=== PATIENT | male | born 2000 | race Caucasian/White ===

== ENCOUNTER 2023-08-12 11:35 | Emergency (ER) | payer BC ==
[2023-08-12 11:49] VITALS: RESP 18
[2023-08-12] MEDS ORDERED: DIPH,PERTUS(ACELL)TETVAC-LF 0.5 ML VIAL IM ONE (12:18)
[2023-08-12] MEDS ORDERED: cefTRIAXone 1,000 MG VIAL (IM USE) IM STA (12:35)
[2023-08-12] MEDS ORDERED: metroNIDAZOLE 500 MG TAB PO STA (12:40)
--- NOTE | 2023-08-12 12:42 | ED ---
General Adult HPI - General Chief complaint: Skin/Abscess/Foreign Body Stated complaint: right elbow cat bit, swollen painful Time Seen by Provider: 08/12/23 11:46 Source: patient, family, RN notes reviewed Mode of arrival: ambulatory Limitations: no limitations - History of Present Illness Initial comments: 23-year-old male presents emergency department for chief complaint of right arm cat bite. He states that this happened around 7 PM yesterday. He notes that there is redness and swelling and localized region to his right dorsal forearm. Patient states that the cat is up-to-date on its rabies vaccination. The patient's last tetanus vaccination was in 2014. This will be updated today. He has no known medical problems and no known ALLERGIES. - Related Data Previous Rx's Medication Instructions Recorded Amoxic-Pot Clav 875-125Mg 1 tab PO Q12HR #20 tab 08/12/23 [Augmentin 875-125] Allergies Allergy/AdvReac Type Severity Reaction Status Date / Time No Known Allergies Allergy Verified 08/12/23 11:45 Review of Systems ROS Statement: Those systems with pertinent positive or pertinent negative responses have been documented in the HPI. ROS Other: All systems not noted in ROS Statement are negative. Past Medical History Past Medical History: No Reported History Past Surgical History: Tonsillectomy Past Psychological History: No Psychological Hx Reported Smoking Status: Never smoker Past Alcohol Use History: Occasional Past Drug Use History: Marijuana General Exam Limitations: no limitations General appearance: alert, in no apparent distress Head exam: Present: atraumatic, normocephalic, normal inspection Eye exam: Present: normal appearance, PERRL, EOMI. Absent: scleral icterus, conjunctival injection, periorbital swelling Respiratory exam: Present: normal lung sounds bilaterally. Absent: respiratory distress, wheezes, rales, rhonchi, stridor Cardiovascular Exam: Present: regular rate, normal rhythm, normal heart sounds. Absent: systolic murmur, diastolic murmur, rubs, gallop, clicks Extremities exam: Present: full ROM, tenderness (lateral proximal forearm over bite location), normal capillary refill, other (radial pulses 2+ ) Neurological exam: Present: alert, oriented X3 Psychiatric exam: Present: normal affect, normal mood Skin exam: Present: warm, dry, erythema, other (2 puncture wounds to lateral proximal forearm, erythema and swelling with no fluctuance, no streaking or lymphadenopathy). Absent: intact, normal color Course Vital Signs 08/12/23 08/12/23 11:40 13:16 Temperature 98 F 97.4 F L Pulse Rate 98 96 Respiratory 18 18 Rate Blood Pressure 122/81 126/78 O2 Sat by Pulse 98 99 Oximetry Medical Decision Making - Medical Decision Making Was pt. sent in by a medical professional or institution (, PA, TOWER SUPERVISOR, urgent care, hospital, or correction...) When possible be specific @ -No Did you speak to anyone other than the patient for history (EMS, parent, family, police, friend...)? What history was obtained from this source @ -No Did you review nursing and triage notes (agree or disagree)? Why? @ -I reviewed and agree with nursing and triage notes Were old charts reviewed (outside hosp., previous admission, EMS record, old EKG, old radiological studies, urgent care reports/EKG's, correction records)? Report findings @ -No old charts were reviewed Differential Diagnosis (chest pain, altered mental status, abdominal pain women, abdominal pain men, vaginal bleeding, weakness, fever, dyspnea, syncope, head ache, dizziness, GI bleed, back pain, seizure, CVA, palpatations, mental health, musculoskeletal)? @ -Differential Musculoskeletal Muscular strain, contusion, ligament sprain, fracture, arthritis, septic arthritis, bursitis, cellulitis, muscle spasm, nerve compression, DVT, arterial occlusion, herpes zoster, electrolyte abnormality, tumor.... This is not meant to be in all inclusive list EKG interpreted by me (3pts min.). @ -none X-rays interpreted by me (1pt min.). @ -None done CT interpreted by me (1pt min.). @ -None done U/S interpreted by me (1pt. min.). @ -None done What testing was considered but not performed or refused? (CT, X-rays, U/S, labs)? Why? @ -None What meds were considered but not given or refused? Why? @ -None Did you discuss the management of the patient with other professionals (professionals i.e. , PA, TOWER SUPERVISOR, lab, RT, psych nurse, social service technician, hog cutter, teacher, chief financial officer, high risk case manager)? Give summary @ -No Was smoking cessation discussed for >3mins.? @ -No Was critical care preformed (if so, how long)? @ -No Were there social determinants of health that impacted care today? How? (Homelessness, low income, unemployed, alcoholism, drug addiction, transportation, low edu. Level, literacy, decrease access to med. care, alf, rehab)? @ -No Was there de-escalation of care discussed even if they declined (Discuss DNR or withdrawal of care, Hospice)? DNR status @ -No What co-morbidities impacted this encounter? (DM, HTN, Smoking, COPD, CAD, Cancer, CVA, ARF, Chemo, Hep., AIDS, mental health diagnosis, sleep apnea, morbid obesity)? @ -None Was patient admitted / discharged? Hospital course, mention meds given and route, prescriptions, significant lab abnormalities, going to OR and other pertinent info. @ -Discharged. Patient presented to the emergency department for evaluation of cat bite to his right arm that occurred at 7 PM yesterday. Patient has an area on his right lateral forearm of erythema and swelling without fluctuance, no streaking, no lymphadenopathy. Case was discussed with pharmacist who recommended dose of IM Rocephin and Flagyl and outpatient treatment with Augmentin. Patient updated on his tetanus vaccination. Patient advised to have wound checked again in 24-48 hours to ensure it is improving. Patient advised to keep it clean and dry. Patient understands agreeable with plan. Patient stable at time of discharge. Case discussed with Dr. Tyler. Undiagnosed new problem with uncertain prognosis? @ -No Drug Therapy requiring intensive monitoring for toxicity (Heparin, Nitro, Insulin, Cardizem)? @ -No Were any procedures done? @ -No Diagnosis/symptom? @ -cat bite Acute, or Chronic, or Acute on Chronic? @ -acute Uncomplicated (without systemic symptoms) or Complicated (systemic symptoms)? @ -uncomplicated Side effects of treatment? @ -No Exacerbation, Progression, or Severe Exacerbation? @ -No Poses a threat to life or bodily function? How? (Chest pain, [place], [place], pneumonia, PE, COPD, DKA, ARF, appy, cholecystitis, CVA, Diverticulitis, Homicidal, Suicidal, threat to staff... and all critical care pts) @ -No Disposition Clinical Impression: Cat bite Disposition: HOME SELF-CARE Condition: Stable Instructions (If sedation given, give patient instructions): Animal Bite (ED) Additional Instructions: Please tow picker antibiotics and take to completion. Please have wound checked in 24-48 hours to ensure improvement. This can be preformed by your PCP or return to the emergency department. Keep wound clean and dry. Prescriptions: Amoxic-Pot Clav 875-125Mg [Augmentin 875-125] 1 tab PO Q12HR #20 tab Is patient prescribed a controlled substance at d/c from ED?: No Referrals: Kamar Fairbanks MD [Primary Care Provider] - 1-2 days
[2023-08-12 13:19] VITALS: BP 126/78; PULSE 96; TEMP 97.4
== END 2023-08-12 13:18 | disposition home or self-care (01) ==
LOC: EC 11:35
DX: S51.051A Open bite, right elbow, initial encounter (principal); F12.90 Cannabis use, unspecified, uncomplicated; W55.01XA Bitten by cat, initial encounter; Z23 Encounter for immunization
CPT/HCPCS: 90715; 99283; 90471; 96372; J0696

== ENCOUNTER 2024-07-18 17:22 | Emergency (ER) | payer BC ==
--- NOTE | 2024-07-18 18:06 | XR ---
EXAMINATION TYPE: XR chest 2V DATE OF EXAM: 07/18/2024 6:01 PM COMPARISON: None available. CLINICAL INDICATION: Male, 24 years old with history of cough; H TECHNIQUE: XR chest 2V Frontal and lateral views of the chest. FINDINGS: Lungs/Pleura: There is no evidence of pleural effusion, focal consolidation, or pneumothorax. Pulmonary vascularity: Unremarkable. Heart/mediastinum: Cardiomediastinal silhouette is unremarkable. Musculoskeletal: No acute osseous pathology. IMPRESSION: No acute cardiopulmonary disease/process. [facility], , 07/18/2024 6:03 PM
[2024-07-18 18:13] VITALS: RESP 18
[2024-07-18] MEDS: DEXAMETHASONE SOD PHOSPHATE 10 MG/ML 1 ML VIAL IM STA (18:13)
--- NOTE | 2024-07-18 18:25 | ED ---
General Adult HPI - General Chief complaint: Upper Respiratory Infection Stated complaint: congestion, fever Time Seen by Provider: 07/18/24 17:31 Source: patient, RN notes reviewed Mode of arrival: ambulatory Limitations: no limitations - History of Present Illness Initial comments: 24-year-old male presents to the emergency department for evaluation of URI symptoms. Patient reports that the symptoms have been going on for 3 to 4 days. He does note today that he woke up with the crusting around both of his eyes and redness. He reports that today has been very irritated. Patient also admits to cough, sore throat, congestion. Mother reports that she had similar symptoms prior to the patient. Denies any documented fevers at home. - Related Data Previous Rx's Medication Instructions Recorded Amoxic-Pot Clav 875-125Mg 1 tab PO Q12HR #20 tab 08/12/23 [Augmentin 875-125] Allergies Allergy/AdvReac Type Severity Reaction Status Date / Time bee venom protein (honey bee) Allergy Rash/Hives Verified 07/18/24 17:29 Review of Systems ROS Statement: Those systems with pertinent positive or pertinent negative responses have been documented in the HPI. ROS Other: All systems not noted in ROS Statement are negative. Past Medical History Past Medical History: No Reported History Past Surgical History: Tonsillectomy Past Psychological History: No Psychological Hx Reported Smoking Status: Never smoker Past Alcohol Use History: Occasional Past Drug Use History: Marijuana General Exam Limitations: no limitations General appearance: alert, in no apparent distress Head exam: Present: atraumatic, normocephalic, normal inspection Eye exam: Present: conjunctival injection, other (Mucopurulent drainage from bilateral eyes) ENT exam: Present: mucous membranes moist, TM's normal bilaterally, normal external ear exam. Absent: normal oropharynx (Erythematous oropharynx) Neck exam: Present: normal inspection. Absent: tenderness, meningismus, lymphadenopathy Respiratory exam: Present: normal lung sounds bilaterally. Absent: respiratory distress, wheezes, rales, rhonchi, stridor Cardiovascular Exam: Present: regular rate, normal rhythm, normal heart sounds. Absent: systolic murmur, diastolic murmur, rubs, gallop, clicks GI/Abdominal exam: Present: soft. Absent: distended, tenderness, guarding, rebound, rigid Extremities exam: Present: normal inspection, full ROM, normal capillary refill. Absent: tenderness, pedal edema, joint swelling, calf tenderness Neurological exam: Present: alert, oriented X3 Psychiatric exam: Present: normal affect, normal mood Skin exam: Present: warm, dry, intact, normal color. Absent: rash Course Vital Signs 07/18/24 07/18/24 07/18/24 17:27 18:12 19:58 Temperature 99.2 F 98.8 F Pulse Rate 102 H 102 H 101 H Respiratory 24 18 18 Rate Blood Pressure 108/64 119/74 114/80 O2 Sat by Pulse 98 99 98 Oximetry Medical Decision Making - Medical Decision Making Was pt. sent in by a medical professional or institution (, JENNIFFER, TOURIST INFORMATION OFFICER, urgent care, hospital, or assisted...) When possible be specific @ -No Did you speak to anyone other than the patient for history (EMS, parent, family, police, friend...)? What history was obtained from this source @ -No Did you review nursing and triage notes (agree or disagree)? Why? @ -I reviewed and agree with nursing and triage notes Were old charts reviewed (outside hosp., previous admission, EMS record, old EKG, old radiological studies, urgent care reports/EKG's, assisted records)? Report findings @ -No old charts were reviewed Differential Diagnosis (chest pain, altered mental status, abdominal pain women, abdominal pain men, vaginal bleeding, weakness, fever, dyspnea, syncope, headache, dizziness, GI bleed, back pain, seizure, CVA, palpatations, mental hea lth, musculoskeletal)? @ -COVID, influenza, RSV, strep pharyngitis, pneumonia, this is not all present EKG interpreted by me (3pts min.). @ -None X-rays interpreted by me (1pt min.). @ -Chest x-ray shows no acute process CT interpreted by me (1pt min.). @ -None done U/S interpreted by me (1pt. min.). @ -None done What testing was considered but not performed or refused? (CT, X-rays, U/S, lab s)? Why? @ -None What meds were considered but not given or refused? Why? @ -None Did you discuss the management of the patient with other professionals (professionals i.e. , JENNIFFER, TOURIST INFORMATION OFFICER, lab, RT, psych nurse, social services technician, wired sweatband cutter, teacher, correctional officer chief, case management social worker)? Give summary @ -No Was smoking cessation discussed for >3mins.? @ -No Was critical care preformed (if so, how long)? @ -No Were there social determinants of health that impacted care today? How? (Homelessness, low income, unemployed, alcoholism, drug addiction, transportation, low edu. Level, literacy, decrease access to med. care, [facility], rehab)? @ -No Was there de-escalation of care discussed even if they declined (Discuss DNR or withdrawal of care, Hospice)? DNR status @ -No What co-morbidities impacted this encounter? (DM, HTN, Smoking, COPD, CAD, Cancer, CVA, ARF, Chemo, Hep., AIDS, mental health diagnosis, sleep apnea, morbid obesity)? @ -None Was patient admitted / discharged? Hospital course, mention meds given and route, prescriptions, significant lab abnormalities, going to OR and other pertinent info. @ -Discharge. Patient presented to the emergency department for evaluation of upper respiratory symptoms, bilateral eye drainage. Patient tested for COVID, influenza, RSV. He was positive for COVID. Negative for influenza, RSV, strep pharyngitis. Chest x-ray obtained revealing no acute process. Advised symptomatic treatment at this time. Patient and mother are understanding agreeable plan. Patient stable at time of discharge. Case discussed with Dr. Quinteros Undiagnosed new problem with uncertain prognosis? @ -No Drug Therapy requiring intensive monitoring for toxicity (Heparin, Nitro, Insulin, Cardizem)? @ -No Were any procedures done? @ -No Diagnosis/symptom? @ -covid Acute, or Chronic, or Acute on Chronic? @ -acute Uncomplicated (without systemic symptoms) or Complicated (systemic symptoms)? @ -uncomplicated Side effects of treatment? @ -No Exacerbation, Progression, or Severe Exacerbation? @ -No Poses a threat to life or bodily function? How? (Chest pain, [place], [place], pneumonia, PE, COPD, DKA, ARF, appy, cholecystitis, CVA, Diverticulitis, Homicidal, Suicidal, threat to staff... and all critical care pts) @ -No - Lab Data Lab Results 07/18/24 07/18/24 Range/Units 18:12 18:12 Influenza Type A (PCR) Not Detected (Not Detectd) Influenza Type B (PCR) Not Detected (Not Detectd) RSV (PCR) Not Detected (Not Detectd) SARS-CoV-2 (PCR) Detected A (Not Detectd) Group A Strep (PCR) NOT DETECTED (Not Detectd) Disposition Clinical Impression: COVID Disposition: HOME SELF-CARE Condition: Stable Instructions (If sedation given, give patient instructions): COVID-19 (Coronavirus Disease 2019) (ED) Additional Instructions: Please utilize symptomatic treatment. Follow up with your primary care provider. Return to the emergency department for new or worsening symptoms. Is patient prescribed a controlled substance at d/c from ED?: No Referrals: Kamar Fairbanks MD [Primary Care Provider] - 1-2 days
[2024-07-18] MEDS: POLYMYXIN B-TRIMETHOPRIM SULF (10,000-1) OPHTH DROPS 10 ML BTL BOTH EYES STA (18:30)
[2024-07-18 20:04] VITALS: BP 114/80; PULSE 101; TEMP 98.8
== END 2024-07-18 20:03 | disposition home or self-care (01) ==
LOC: EC 17:22
DX: U07.1 COVID-19 (principal); Z91.030 Bee allergy status
CPT/HCPCS: 87651; 87636; 71046; 99283; 96372; J1100